=== PATIENT | male | born 1955 | race Two or more races ===

== ENCOUNTER 2019-08-12 05:15 | Day surgery (SDC) | payer OTHER ==
[2019-08-12] MEDS ORDERED: TYLENOL ARTHRI650 MG PO (09:17)
[2019-08-12] MEDS ORDERED: MIRALAX17 GM PO (09:17)
[2019-08-12] MEDS ORDERED: ULTRAM50 MG PO (09:17)
== END 2019-08-12 12:00 | disposition home or self-care (01) ==
LOC: CIR.AMB 05:15 → ADM 13:30 → CIR.AMB 14:00
PROVIDERS: ATTEND Surgery
DX: K40.90 Unilateral inguinal hernia, without obstruction or gangrene, not specified as recurrent (principal); K42.9 Umbilical hernia without obstruction or gangrene; D17.6 Benign lipomatous neoplasm of spermatic cord

== ENCOUNTER 2021-04-12 06:12 | Day surgery (SDC) | payer OTHER ==
[~2021-04-12 06:12] MED LIST: MIRALAX17 GM PO; TYLENOL ARTHRI650 MG PO; ULTRAM50 MG PO
[2021-04-12] MEDS ORDERED: ULTRAM50 MG PO (07:33)
[2021-04-12] MEDS ORDERED: NEURONTIN300 MG PO (07:33)
[2021-04-12] MEDS ORDERED: MIRALAX17 GM PO (07:33)
[2021-04-12] MEDS ORDERED: TYLENOL ARTHRI650 MG PO (07:33)
== END 2021-04-12 11:40 | disposition home or self-care (01) ==
LOC: CIR.AMB 06:12
PROVIDERS: ATTEND Surgery
DX: K40.90 Unilateral inguinal hernia, without obstruction or gangrene, not specified as recurrent (principal)